=== PATIENT | male | born 1940 ===

== ENCOUNTER → 2020-04-23 10:48 | Outpatient (REF) | payer MEDICARE, SELFPAY | LOC: ANHLAB 10:48 | PROVIDERS: PCP Family Medicine; Visit Provider Nurse Practitioner | DX: C44.319 Basal cell carcinoma of skin of other parts of face (principal) | CPT/HCPCS: 88305 ==

== ENCOUNTER → 2020-05-27 07:04 | Outpatient (REF) | payer MEDICARE, SELFPAY | LOC: ANHLAB 07:04 | PROVIDERS: PCP Family Medicine; Visit Provider Nurse Practitioner | DX: C44.319 Basal cell carcinoma of skin of other parts of face (principal) | CPT/HCPCS: 88305; 88331 ==